=== PATIENT | male | born 1985 | race Caucasian/White ===

== ENCOUNTER 2017-06-24 13:11 | Emergency (ER) | payer OTHER ==
[~2017-06-24] VITALS: Ht 180.3 cm; Wt 80.0 kg
[2017-06-24 13:25] VITALS: BP 120/72; PULSE 97; RESP 17; O2SAT 100
[2017-06-24] MEDS ORDERED: TRAM50TA PO (13:29)
--- NOTE | 2017-06-24 13:37 | PD ---
HPI Chief Complaint: Altered Mental Status Time Seen by Provider: 13:20 Travel History International Travel<30 days: No Contact w/Intl Traveler<30days: No Traveled to known affect area: No History of Present Illness HPI 31-year-old male that presents to the ED for evaluation of episode of confusion. Patient allegedly had an episode where he stared and would not respond. Apparently lasted for few minutes. Patient was seated down and he became confused but came back to it. Patient has never had like this before. Patient was at work when this happened. Patient did not have any tonic-clonic changes. He denies any history of seizures. He states having some chronic back problems secondary to the service. He takes tramadol for this. Has history depression and anxiety and takes Zoloft. He denies any chest pain or shortness of breath. No urinary or bowel movement issues. States having a slight headache now. Has no allergies to medication. States feeling "off". Has no allergies to medication. No fevers chills or sweats. He does not remember what happened and cannot really tell me this ever happened before. He denies any history of seizures. No history of hypertension. Denies any illicit drug use and states compliance with his medications. No pain other than a slight headache that is 3 out of 10. No blurry vision or double vision. No history of CVA in the family or himself. Patient and reported denies any fall or patient hitting his head. PFSH Past Medical History Musculoskeletal: Yes (back injury) Psychiatric: Yes (PTSD) Influenza Vaccination: No Past Surgical History Tonsillectomy: Yes Family History Family Breast Cancer: Yes (paternal grandmother) Family Myocardial Infarction: Yes (paternal grandfather) Social History Alcohol Use: No Tobacco Use: Yes (2- ppd) Substance Use: No Allergies-Medications (Allergen,Severity, Reaction): Coded Allergies: No Known Allergies (Unverified , 06/24/17) Reported Meds & Prescriptions Reported Meds & Active Scripts Active Reported Stool Softener (Docusate Sodium) 100 Mg Tab Ferrous Sulfate 325 Mg (65 Mg Iron) Tablet 325 Mg PO DAILY Melatonin 10 Mg-1 Mg Tab 10 Mg PO HS PRN Divalproex ER (Divalproex Sodium) 500 Mg Tab 500 Mg PO HS Buspirone (Buspirone HCl) 10 Mg Tab 10 Mg PO TID Bupropion HCl 100 Mg Tab 100 Mg PO BID Tramadol (Tramadol HCl) 50 Mg Tab 100 Mg PO Q6H PRN Review of Systems Except as stated in HPI: all other systems reviewed are Neg Physical Exam Narrative GENERAL: SKIN: Warm and dry. HEAD: Atraumatic. Normocephalic. EYES: Pupils equal and round 4 mm reactive to light and accommodation. No scleral icterus. No injection or drainage. ENT: No nasal bleeding or discharge. Mucous membranes pink and moist. Tongue is midline. No uvula deviation. NECK: Trachea midline. No JVD. CARDIOVASCULAR: Regular rate and rhythm. No murmurs, S3, S4. RESPIRATORY: No accessory muscle use. Clear to auscultation. Breath sounds equal bilaterally. GASTROINTESTINAL: Abdomen soft, non-tender, nondistended. Hepatic and splenic margins not palpable. MUSCULOSKELETAL: Extremities without clubbing, cyanosis, or edema. No obvious deformities. Full range of motion of the upper and lower extremities bilaterally. 2+ pulses bilaterally. Romberg test negative. Pronator test negative. NEUROLOGICAL: Awake and alert and oriented to person, place but some confusion with time as he cannot tell me what day of the week it is a what month but able to tell me the year. No obvious cranial nerve deficits. Motor grossly within normal limits. Five out of 5 muscle strength in the arms and legs. Normal speech. PSYCHIATRIC: Appropriate mood and affect; insight and judgment normal. Data Data Last Documented VS Vital Signs Date Time Temp Pulse Resp B/P (MAP) Pulse Ox O2 Delivery O2 Flow Rate FiO2 06/24/17 13:25 97 17 120/72 (88) 100 Room Air Orders Orders Electrocardiogram (06/24/17 13:20) Complete Blood Count With Diff (06/24/17 13:20) Comprehensive Metabolic Panel (06/24/17 13:20) Creatine Kinase (Cpk) (06/24/17 13:20) Troponin I (06/24/17 13:20) Prothrombin Time / Inr (Pt) (06/24/17 13:20) Act Partial Throm Time (Ptt) (06/24/17 13:20) Magnesium (Mg) (06/24/17 13:20) Thyroid Stimulating Hormone (06/24/17 13:20) Iv Access Insert/Monitor (06/24/17 13:20) Ecg Monitoring (06/24/17 13:20) Oximetry (06/24/17 13:20) Drug Screen, Random Urine (06/24/17 13:20) Alcohol (Ethanol) (06/24/17 13:20) Lactic Acid (06/24/17 13:20) Ct Brain W/O Iv Contrast(Rout) (06/24/17 ) Acetaminophen (Tylenol) (06/24/17 15:15) Ed Discharge Order (06/24/17 15:29) Labs Laboratory Tests Test 06/24/17 13:50 06/24/17 15:00 White Blood Count 9.9 TH/MM3 Red Blood Count 4.39 MIL/MM3 Hemoglobin 14.5 GM/DL Hematocrit 41.2 % Mean Corpuscular Volume 93.8 FL Mean Corpuscular Hemoglobin 32.9 PG Mean Corpuscular Hemoglobin Concent 35.1 % Red Cell Distribution Width 12.9 % Platelet Count 251 TH/MM3 Mean Platelet Volume 8.0 FL Neutrophils (%) (Auto) 78.5 % Lymphocytes (%) (Auto) 12.1 % Monocytes (%) (Auto) 8.1 % Eosinophils (%) (Auto) 0.9 % Basophils (%) (Auto) 0.4 % Neutrophils # (Auto) 7.7 TH/MM3 Lymphocytes # (Auto) 1.2 TH/MM3 Monocytes # (Auto) 0.8 TH/MM3 Eosinophils # (Auto) 0.1 TH/MM3 Basophils # (Auto) 0.0 TH/MM3 CBC Comment DIFF FINAL Differential Comment Prothrombin Time 10.6 SEC Prothromb Time International Ratio 1.0 RATIO Activated Partial Thromboplast Time 24.7 SEC Blood Urea Nitrogen 9 MG/DL Creatinine 1.03 MG/DL Random Glucose 90 MG/DL Total Protein 7.2 GM/DL Albumin 3.9 GM/DL Calcium Level 8.2 MG/DL Magnesium Level 2.1 MG/DL Alkaline Phosphatase 69 U/L Aspartate Amino Transf (AST/SGOT) 16 U/L Alanine Aminotransferase (ALT/SGPT) 21 U/L Total Bilirubin 0.2 MG/DL Sodium Level 140 MEQ/L Potassium Level 4.2 MEQ/L Chloride Level 107 MEQ/L Carbon Dioxide Level 27.5 MEQ/L Anion Gap 6 MEQ/L Estimat Glomerular Filtration Rate 84 ML/MIN Lactic Acid Level 1.1 mmol/L Total Creatine Kinase 138 U/L Troponin I LESS THAN 0.02 NG/ML Thyroid Stimulating Hormone 3rd Gen 4.100 uIU/ML Ethyl Alcohol Level LESS THAN 3 MG/DL MDM Medical Decision Making Medical Screen Exam Complete: Yes Emergency Medical Condition: Yes Medical Record Reviewed: Yes Interpretation(s) CBC & BMP Diagram 06/24/17 13:50 Total Protein 7.2, Albumin 3.9, Calcium Level 8.2 L, Magnesium Level 2.1, Alkaline Phosphatase 69, Aspartate Amino Transf (AST/SGOT) 16, Alanine Aminotransferase (ALT/SGPT) 21, Total Bilirubin 0.[address] 06/24/17 0000 Signed Impressions: Service Date/Time: Saturday, June 24, 2017 13:44 - CONCLUSION: Normal examination. Danny Porter MD troponin negative TSH slightly elevated Differential Diagnosis Seizure versus absence seizure versus stroke versus CVA versus altered mental status versus drug abuse versus vasovagal Narrative Course 31-year-old male that presents to the ED for evaluation of episode of confusion. Patient was properly examined and was found to have signs and symptoms of unclear etiology. From the symptoms they reported and the patient reports she could be absence seizure. Patient did not have a fall or injury. He does complain of a slight headache. No history of seizures but patient does take tramadol which is known to lower threshold for seizures. He has been taking tramadol for quite some time. At this time I recommend labs and imaging. Patient agrees. Labs and imaging showed no sign of acute disease aren 't a slightly elevated TSH. Case was discussed in my attending Dr. Worley who was made aware of all findings and agrees the patient can be discharged. Patient agrees with this plan. Told to follow with psychiatrist as I believe that some of his symptoms might be related to polypharmacy. Apparently from the patient as well as the 's report the be having issues with the psychiatrist given him Wellbutrin. Apparently patient is to be Wellbutrin and doing well but they switched his medications recently and he is being having more depression and anxiety. He used to take Wellbutrin, Depakote and at some point he used to take Xanax but this was discontinued and now he continues to take Depakote and takes Wellbutrin from his . I do recommend strong follow- up with psychiatry as an PCP. Patient was told not to drive or operate any heavy machinery until cleared by PCP as patient could've had a seizure. Sutures to on the differential. Patient was told that if anything worsens she is to come back to the ED. He Agrees and understands this plan. Diagnosis Primary Impression: Syncope, near Referrals: Danny Burgess MD [facility] Patient Instructions: General Instructions Departure Forms: Tests/Procedures, Work Release Enter return to work date: Jun 27, 2017 Additional Instructions: Follow-up with psychiatry. See ED worsening symptoms. Take medications as prescribed. No driving until seen by their doctor and cleared. TSH is 4.100 here. Med/Other Pt SpecificInfo: No Change to Meds Disposition: 01 DISCHARGE HOME Condition: Stable Redd Menard Jun 24, 2017 13:37
[2017-06-24 14:06] LABS: AUTOMATED NEUTROPHIL # 7.7 TH/MM3 (1.8-7.7); BASOPHIL % 0.4 % (0.0-2.0); EOSINOPHIL # 0.1 TH/MM3 (0-0.4); EOSINOPHIL % 0.9 % (0.0-4.0); HEMATOCRIT 41.2 % (39.0-51.0); HEMOGLOBIN 14.5 GM/DL (13.0-17.0); LYMPH % 12.1 % (9.0-44.0); LYMPHOCYTE # 1.2 TH/MM3 (1.0-4.8); MEAN CELL VOLUME 93.8 FL (80.0-100.0); MEAN CORPUSCULAR HEMOGLOBIN 32.9 PG (27.0-34.0); MEAN CORPUSCULAR HGB CONC 35.1 % (32.0-36.0); MONO % 8.1 % (0.0-8.0); MONOCYTE # 0.8 TH/MM3 (0-0.9); NEUT % 78.5 % (16.0-70.0); PLATELET COUNT 251 TH/MM3 (150-450); RED BLOOD COUNT 4.39 MIL/MM3 (4.50-5.90); RED CELL DISTRIBUTION WIDTH 12.9 % (11.6-17.2); WHITE BLOOD COUNT 9.9 TH/MM3 (4.0-11.0)
--- NOTE | 2017-06-24 14:07 | RADRPT ---
EXAM DATE/TIME: 06/24/2017 13:44 [facility] COMPARISON: No previous studies available for comparison. INDICATIONS : Sudden onset of confusion. RADIATION DOSE: 56.35 CTDIvol (mGy) MEDICAL HISTORY : None SURGICAL HISTORY : None. ENCOUNTER: Initial ACUITY: 1 day PAIN SCALE: 0/10 LOCATION: cranial TECHNIQUE: Multiple contiguous axial images were obtained of the head. Using automated exposure control and adj ustment of the mA and/or kV according to patient size, radiation dose was kept as low as reasonably a chievable to obtain optimal diagnostic quality images. DICOM format image data is available electro nically for review and comparison. FINDINGS: CEREBRUM: The ventricles are normal for age. No evidence of midline shift, mass lesion, hemorrhage or acute in farction. No extra-axial fluid collections are seen. POSTERIOR FOSSA: The cerebellum and brainstem are intact. The 4th ventricle is midline. The cerebellopontine angle i s unremarkable. EXTRACRANIAL: The visualized portion of the orbits is intact. SKULL: The calvaria is intact. No evidence of skull fracture. CONCLUSION: Normal examination. Danny Porter MD on June 24, 2017 at 14:04 Board Certified Radiologist. This report was verified electronically.
[2017-06-24 14:23] LABS: PROTHROMBIN TIME - PATIENT 10.6 SEC (9.8-11.6)
[2017-06-24 14:26] LABS: ALBUMIN 3.9 GM/DL (3.4-5.0); ALT (GPT) 21 U/L (12-78); AST (GOT) 16 U/L (15-37); BICARBONATE 27.5 MEQ/L (21.0-32.0); BLOOD UREA NITROGEN 9 MG/DL (7-18); CALCIUM 8.2 MG/DL (8.5-10.1); CHLORIDE 107 MEQ/L (98-107); CREATININE 1.03 MG/DL (0.60-1.30); GLOMERULAR FILTRATION RATE 84 ML/MIN (>89); GLUCOSE,RANDOM 90 MG/DL (74-106); MAGNESIUM 2.1 MG/DL (1.5-2.5); SODIUM (NA) 140 MEQ/L (136-145)
[2017-06-24 14:34] LABS: ALKALINE PHOSPHATASE 69 U/L (45-117); TOTAL BILIRUBIN ADULT 0.2 MG/DL (0.2-1.0); TOTAL PROTEIN 7.2 GM/DL (6.4-8.2); TROPONIN I LESS THAN 0.02 NG/ML (0.02-0.05)
[2017-06-24] MEDS ORDERED: BUSP10TA PO (14:59)
[2017-06-24] MEDS ORDERED: DIVA500T3 PO (14:59)
[2017-06-24] MEDS ORDERED: BUPR100T4 PO (14:59)
[2017-06-24] MEDS ORDERED: FERR325T18 PO (15:00)
[2017-06-24] MEDS ORDERED: MELA1TAB18 PO (15:00)
[2017-06-24] MEDS ORDERED: STOO100T (15:00)
[2017-06-24] MEDS ORDERED: ACETAMINOPHEN 325 MG TAB PO ONE (15:15)
--- NOTE | 2017-06-25 15:26 | EKG ---
Date Performed: 06/24/2017 Time Performed: 14:50:37 PTAGE: 31 years EKG: Sinus rhythm NORMAL ECG NO PREVIOUS TRACING DOCTOR: Leland Casanova Interpretating Date/Time 06/25/2017 15:25:12
== END 2017-06-24 16:17 | disposition home or self-care (01) ==
LOC: NEPE 13:11
DX: R55 Syncope and collapse (principal); R51 Headache; Z72.0 Tobacco use
CPT/HCPCS: 70450; 80053; 80307; 82550; 83605; 83735; 84443; 84484; 85025; 85610; 85730; 93005; 99285